=== PATIENT | female | born 1950 | race Caucasian/White ===

== ENCOUNTER → 2017-04-14 | Day surgery (SDC) | payer MEDICARE, OTHER ==
[~2017-04-14] MED LIST: ACETAMINOPHEN 325 MG TAB ONE; DEXAMETHASONE SOD PHOS 4 MG/ML VIAL ONE; EPINEPHrine HCL (1:1000) 1 MG/ML VIAL ONE; LACTATED RINGER'S 1000 ML INJ 1,000 ML ONE; MIDAZOLAM HCL 2 MG/2 ML VIAL ONE; MOXIFLOXACIN 0.5% OPHT SOLN 3 ML BTL ONE; ONDANSETRON HCL 4 MG/2 ML VIAL IV PUSH ONE; PHENYLEPHRINE HCL 10% OPTH SOLN 5 ML BTL ONE; PROPOFOL 200 MG/20 ML AMP IV ONE; SODIUM CHLORIDE 0.9% INJ 10 ML ONE; TETRACAINE 0.5% OPTH SOLN 15 ML BTL ONE; TOBRAMYCIN/DEXAMETHASONE OPTH OINT 3.5 GM TUBE ONE; TRIAMCINOLONE ACETONIDE 40 MG/ML VIAL ONE; ceFAZolin INJ 1,000 MG VIAL ONE; prednisoLONE ACETATE 1% OPHT SUSP 5 ML BTL ONE
--- NOTE | 2017-04-20 07:10 | MP ---
cc: MADELAINE GOMES DATE OF SURGERY 04/14/2017. POSTOPERATIVE DIAGNOSIS Epiretinal membrane, metamorphopsia, retinal edema, right eye. PROCEDURE Pars plana vitrectomy, removal of internal limiting membrane/epiretinal membrane, endolaser, air-fluid exchange, insertion of Intra-vitreal Kenalog right eye. COMPLICATIONS None BLOOD LOSS Less than [address] Gates general INDICATIONS FOR PROCEDURE This is a delightful patient who presented with worsening metamorphopsia and epiretinal membrane on her right eye. The patient elected for surgical correction understanding risks, benefits and alternatives. PROCEDURE NOTE After informed consent was obtained, the patient was brought to the operating room. General anesthesia was established. The right eye was prepped and draped in sterile fashion with Betadine in the conjunctival fornix. A three port pars plana vitrectomy was established with a self-retaining infusion cannula. Core vitreous was evacuated and vitreous traction relieved. The EOM/ILM complex was highlighted with ICG and removed with [place] forceps. Retina had improved contour. 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 Partial air-fluid exchange was carried out and Intra-vitreal Kenalog was instilled. Trocar was removed and sclerotomies closed. Subconjunctival injection of Ancef and dexamethasone were given. The eye was patched with Tobramycin ointment. The patient was brought to recovery room in stable condition. Will continue followup with [facility] for her postoperative care. MD ARTHUR Lozoya/ /3:34 PM /7:06 AM
== END | disposition home or self-care (01) ==
LOC: ESDC 07:11
PROVIDERS: ATTEND Ophthalmology
DX: H35.371 Puckering of macula, right eye (principal); H53.15 Visual distortions of shape and size; H35.81 Retinal edema
CPT/HCPCS: 00145; 67043; J0171; J0690; J1100; J2250; J2405; J3010; J3301; J7120